=== PATIENT | female | born 1980 | race Caucasian/White ===

== ENCOUNTER 2022-03-03 17:40 | Observation (INO) | payer MEDICAID ==
[2022-03-03] MEDS ORDERED: MORPHINE SULFATE 4 MG INJ ONE ×2 (17:43→17:52)
[2022-03-03] MEDS ORDERED: Zofran 4 MG/2 ML VIAL ONE (17:43)
[2022-03-03] MEDS ORDERED: Sodium Chloride 0.9% 1000 ML 1,000 ML ONE (17:45)
[2022-03-03] MEDS ORDERED: BACIGUENT PACKET ONE ×2 (18:01→18:13)
[2022-03-03] MEDS ORDERED: Zofran 4 MG/2 ML VIAL IV ONE (18:04)
[2022-03-03] MEDS ORDERED: Sodium Chloride 0.9% 1000 ML 1,000 ML IV STA (18:04)
[2022-03-03] MEDS ORDERED: MORPHINE SULFATE 4 MG INJ IV ONE ×2 (18:04→18:53)
[2022-03-03 18:17] LABS: CK-Creatinine Phosphokinase 53 U/L (30-135)
[2022-03-03 18:32] LABS: ALBUMIN 3.5 g/dL (3.5-5.0); ALKALINE PHOSPHATASE 66 U/L (38-126); ANION GAP 12.8 MEQ/L (5-15); BLOOD UREA NITROGEN 16 mg/dL (7-17); CHLORIDE 103 mmol/L (98-107); Calcium 8.6 mg/dL (8.4-10.2); Carbon Dioxide 23 mmol/L (22-30); Creatinine 1 0.71 mg/dL (0.52-1.04); EST GLOMERULAR FILTRATION RATE > 60.0 ML/MIN; Glucose 104 mg/dL (74-106); Potassium 4.3 mmol/L (3.5-5.1); SGOT/AST 32 U/L (14-36); SGPT/ALT 19 U/L (0-35); SODIUM 135 mmol/L (137-145); Total Protein 7.2 g/dL (6.3-8.2)
[2022-03-03 18:57] LABS: Appearance CLEAR (CLEAR); Bilirubin NEGATIVE (NEGATIVE); Epithelial Cells RARE /HPF (FEW); Glucose NEGATIVE (NEGATIVE); Ketones NEGATIVE (NEGATIVE); Ph 6.5 (5-6); Protein,Urine Dip NEGATIVE (Negative); RBC NEGATIVE Ery/ul (0-5); Specific Gravity <=1.005 (1.005-1.025); WBC 0-2 /HPF (0-5)
[2022-03-03 18:58] LABS: Nitrite NEGATIVE (NEGATIVE); Urine Cultured Indicated? NO; Urobilinogen 2 mg/dL (0-1)
[2022-03-03 18:59] LABS: Dipstick done @ ? MAIN LAB
[2022-03-03 19:39] LABS: Absolute Neutrophil Ct (ANC) 5.74 x10^3/uL (1.4-6.9); Basophil (Absolute #) 0.09 x10^3/uL (0-0.4); Eosinophil % 2.9 % (0.00-5.0); Hematocrit 43.2 % (35-47); Hemoglobin 13.3 g/dL (12.0-16.0); Lymphocyte (Absolute #) 3.02 x10^3/uL (1.0-4.6); Lymphocytes % 29.6 % (24.0-44.0); Mean Cell Volume 90.6 fL (78-100); Mean Corpuscular Hemoglobin 27.9 pg (26-32); Mean Corpuscular Hgb Concent. 30.8 g/dL (32-36); Mean Platelet Volume 11.3 fL (7.5-11.0); Monocyte (Absolute #) 1.03 x10^3/uL (0.0-1.3); Monocytes % 10.1 % (0.0-12.0); Neutrophil % 56.2 % (36.0-66.0); Platelet Count 182 x10^3/uL (150-450); Red Blood Count 4.77 x10^6/uL (4.1-5.4); Red Cell Distribution Width 13.3 % (11.5-14.0); White Blood Count 10.2 x10^3/uL (4.0-10.5)
[2022-03-03 20:38] LABS: Slide Review 1 YES
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
[2022-03-03 22:10] LABS: INFLUENZA A NEGATIVE (NEGATIVE); INFLUENZA B NEGATIVE (NEGATIVE); RESPIRATORY SYNCTIAL VIRUS NEGATIVE (Negative); SARS-CoV-2 Xpert Express NEGATIVE (NEGATIVE)
[2022-03-03] MEDS ORDERED: MORPHINE SULFATE 2 MG INJ IV ONE (22:21)
[2022-03-03] MEDS ORDERED: MORPHINE SULFATE 2 MG INJ ONE (22:27)
[2022-03-03] MEDS ORDERED: TYLENOL 325 MG PO PRN (22:59)
[2022-03-03] MEDS ORDERED: DUONEB 0.5-3 MG/3 ml Neb IH PRN (22:59)
[2022-03-03] MEDS ORDERED: Zofran 4 MG/2 ML VIAL IV PRN (22:59)
[2022-03-04] MEDS: Sodium Chloride 0.9% 1000 ML 1,000 ML IV SCH ×3 (00:05→19:52)
[2022-03-04 04:58] LABS: Absolute Neutrophil Ct (ANC) 5.47 x10^3/uL (1.4-6.9); Basophil (Absolute #) 0.08 x10^3/uL (0-0.4); Eosinophil (Absolute #) 0.37 x10^3/uL (0-0.5); Hematocrit 39.2 % (35-47); Hemoglobin 12.6 g/dL (12.0-16.0); Lymphocyte (Absolute #) 2.33 x10^3/uL (1.0-4.6); Lymphocytes % 25.2 % (24.0-44.0); Mean Cell Volume 87.3 fL (78-100); Mean Corpuscular Hemoglobin 28.1 pg (26-32); Mean Corpuscular Hgb Concent. 32.1 g/dL (32-36); Mean Platelet Volume 11.4 fL (7.5-11.0); Monocyte (Absolute #) 0.94 x10^3/uL (0.0-1.3); Monocytes % 10.2 % (0.0-12.0); Neutrophil % 59.3 % (36.0-66.0); Platelet Count 214 x10^3/uL (150-450); Red Blood Count 4.49 x10^6/uL (4.1-5.4); Red Cell Distribution Width 13.7 % (11.5-14.0); White Blood Count 9.2 x10^3/uL (4.0-10.5)
[2022-03-04 05:22] LABS: ALBUMIN 2.6 g/dL (3.5-5.0); ALKALINE PHOSPHATASE 53 U/L (38-126); ANION GAP 10.2 MEQ/L (5-15); BLOOD UREA NITROGEN 13 mg/dL (7-17); CHLORIDE 104 mmol/L (98-107); Calcium 7.7 mg/dL (8.4-10.2); Carbon Dioxide 24 mmol/L (22-30); Creatinine 1 0.64 mg/dL (0.52-1.04); EST GLOMERULAR FILTRATION RATE > 60.0 ML/MIN; Glucose 106 mg/dL (74-106); Potassium 4.2 mmol/L (3.5-5.1); SGOT/AST 17 U/L (14-36); SGPT/ALT 15 U/L (0-35); SODIUM 134 mmol/L (137-145); Total Protein 5.5 g/dL (6.3-8.2)
[2022-03-04] MEDS ORDERED: MORPHINE SULFATE 4 MG INJ ONE (06:58)
[2022-03-04] MEDS: MORPHINE SULFATE 4 MG INJ IV PRN ×3 (07:00→21:30)
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
[2022-03-04] MEDS ORDERED: Cyclobenzaprine 10 MG PO PRN (08:53)
[2022-03-04] MEDS ORDERED: Miralax Powder 17GM PACKET PO PRN (08:54)
[2022-03-04] MEDS ORDERED: Docusate Sodium 100 MG PO PRN (08:54)
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
[2022-03-04] MEDS ORDERED: MOTRIN 600 MG PO ONE (09:32)
[2022-03-04] MEDS: PROTONIX 40 MG IV IV SCH (09:50)
[2022-03-04] MEDS ORDERED: MORPHINE SULFATE 10 MG/ML IV ONE (17:04)
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
[2022-03-05] MEDS ORDERED: BENADRYL 50 MG/ML IV PRN ×2 (01:24→07:15)
[2022-03-05] MEDS: MORPHINE SULFATE 4 MG INJ IV PRN ×3 (01:36→12:07)
[2022-03-05] MEDS: Sodium Chloride 0.9% 1000 ML 1,000 ML IV SCH (06:07)
[2022-03-05 07:34] VITALS: O2SAT 94
[2022-03-05] MEDS: PROTONIX 40 MG IV IV SCH ×2 (09:01→09:06)
--- NOTE | 2022-03-05 10:43 | XRAY ---
Indication: Nonalcoholic fatty liver disease. Two-dimensional right upper quadrant abdominal sonogram performed. Comparison: None Liver is enlarged measuring 20.5 cm and demonstrates diffuse fatty echogenicity without focal solid/cystic mass or ascites. Gallbladder normally distended without gallstones, wall thickening, or pericholecystic fluid. Common bile duct measures 5.5 mm. No intrahepatic biliary distention. Right kidney sonographically unremarkable measuring 9.6 cm in length. Impression: Fatty hepatomegaly.
[2022-03-05 12:12] VITALS: BP 132/71; PULSE 86
== END 2022-03-05 12:55 ==
LOC: ED 17:40 → MED SURG 22:58
PROVIDERS: ADMIT Family Medicine; ATTEND Family Medicine
DX: T07.XXXD Unspecified multiple injuries, subsequent encounter (principal); V89.2XXD Person injured in unspecified motor-vehicle accident, traffic, subsequent encounter; K59.00 Constipation, unspecified; R53.1 Weakness; S06.0X9D Concussion with loss of consciousness of unspecified duration, subsequent encounter; S82.842A Displaced bimalleolar fracture of left lower leg, initial encounter for closed fracture; Z20.828 Contact with and (suspected) exposure to other viral communicable diseases
CPT/HCPCS: 0241U; 36000; 36415; 51702; 70450; 71250; 72125; 73590; 73610; 74176; 76705; 80053; 81015; 82550; 83690; 83735; 84443; 85025; 87070; 96360; 96374; 96375; 96376; 97163; 97166; 99285; G0378; J1200; J2270; J2405; A9270-GY